=== PATIENT | female | born 1995 | race Caucasian/White ===

== ENCOUNTER 2019-05-12 18:33 | Emergency (ER) | payer MEDICARE, MEDICAID ==
[~2019-05-12] VITALS: Ht 165.1 cm; Wt 77.2 kg
[2019-05-12 19:51] LABS: BASOPHILS # (AUTO) 0.1 X10'3 (0-0.2); BASOPHILS % (AUTO) 0.7 % (0-1); EOSINOPHILS # (AUTO) 0.2 X10'3 (0-0.9); EOSINOPHILS % (AUTO) 2.1 % (0-6); HEMATOCRIT 41.6 % (35.0-45.0); HEMOGLOBIN 13.7 g/dl (12.0-16.0); LYMPHOCYTES # (AUTO) 2.6 X10'3 (1.1-4.8); LYMPHOCYTES % (AUTO) 29.7 % (21-51); MEAN CORPUSCULAR HEMOGLOBIN 30.8 PG (27.0-31.0); MEAN CORPUSCULAR HGB CONC 32.9 g/dL (33.0-36.5); MEAN CORPUSCULAR VOLUME 93.6 FL (78-98); MEAN PLATELET VOLUME 8.3 FL (7.4-10.4); MONOCYTES # (AUTO) 0.7 X10'3 (0-0.9); NEUTROPHILS # (AUTO) 5.2 X10'3 (1.8-7.7); NEUTROPHILS % (AUTO) 59.5 % (42-75); PLATELET COUNT 328 X10'3 (140-440); RED BLOOD COUNT 4.44 X10'6 (4.20-5.60); RED CELL DISTRIBUTION WIDTH 13.5 % (11.5-14.5); WHITE BLOOD COUNT 8.7 X10'3 (4.5-11.0)
[2019-05-12 19:54] LABS: URINE HCG NEGATIVE (NEG)
[2019-05-12 19:57] LABS: URINE AMPHETAMINE SCREEN NEGATIVE (Neg); URINE BARBITUATE SCREEN NEGATIVE (Neg); URINE BENZODIAZEPINES SCREEN POSITIVE (Neg); URINE CANNABINOID SCREEN POSITIVE (Neg); URINE COCAINE SCREEN NEGATIVE (Neg); URINE METHADONE SCREEN NEGATIVE (Neg); URINE OPIATE SCREEN NEGATIVE (Neg); URINE PHENCYCLIDINE SCREEN NEGATIVE (Neg)
[2019-05-12 20:02] LABS: ALANINE AMINOTRANSFERASE 19 U/L (12-78); ALBUMIN 3.7 G/DL (3.4-5.0); ALKALINE PHOSPHATASE 81 IU/L (46-116); ANION GAP 9 (8-16); ASPARTATE AMINO TRANSFERASE 14 U/L (10-37); BILIRUBIN,TOTAL 0.5 MG/DL (0.1-1.0); BLOOD UREA NITROGEN 10 MG/DL (7-18); BUN/CREATININE RATIO 11.6 (6.6-38.0); CALCIUM 8.2 MG/DL (8.5-10.1); CHLORIDE 107 MMOL/L (99-107); CREATININE 0.86 MG/DL (0.40-0.90); GLUCOSE 116 MG/DL (70-104); POTASSIUM 3.3 MMOL/L (3.5-5.1); SODIUM 143 MMOL/L (135-145); TOTAL CARBON DIOXIDE 27.2 MMOL/L (24-32); TOTAL PROTEIN 7.4 G/DL (6.4-8.2); eGFR 81 ML/MIN
[2019-05-12 20:04] LABS: CLARITY,URINE CLOUDY (Clear); COLOR,URINE YELLOW (Yellow); GLUCOSE, URINE NEGATIVE (Neg); KETONES,URINE NEGATIVE (Neg); LEUKOCYTE ESTERASE ,URINE SMALL (Neg); NITRITES, URINE NEGATIVE (Neg); OCCULT BLOOD,URINE NEGATIVE (Neg); PROTEIN,URINE NEGATIVE (Neg)
[2019-05-12 20:09] LABS: UA COLLECTION TYPE CLN CATCH MIDSTREAM
[2019-05-12 20:10] LABS: RBC,URINE 0-2 /HPF (0-2); WBC,URINE 20-30 /HPF (0-4)
[2019-05-12 20:11] LABS: BACTERIA,URINE FEW /HPF (Neg); MUCUS STRANDS MODERATE /LPF (Neg); SQUAMOUS EPITHELIAL CELL,UR MODERATE /LPF (FEW)
[2019-05-12 20:12] LABS: ETHANOL < 0.010 GM/DL (0.0-0.010)
[2019-05-12] MEDS ORDERED: sulfamethoxazole/trimethoprim DS (800/160mg) tablet PO SCH (20:45)
[2019-05-12] MEDS: sulfamethoxazole/trimethoprim DS (800/160mg) tablet PO ONE ×2 (20:45→22:06)
--- NOTE | 2019-05-12 21:10 | NUR ---
Pt packet faxed to [facility]
[2019-05-12] MEDS ORDERED: DIAZ10TA PO (21:40)
[2019-05-12] MEDS ORDERED: BREX1TAB PO (21:40)
[2019-05-12] MEDS ORDERED: DULO60CA45 PO (21:40)
--- NOTE | 2019-05-12 21:42 | NUR ---
DURING ASSESSMENT PT WAS CLEAR THAT SHE DOES NOT HAVE AN ACTIVE PLAN FOR SELF HARM, BUT HAS USED CUTTING IN THE PAST TO PHYSICALLY DISTRACT HERSELF FROM HER MENTAL ANGUISH. SHE HAS NOTICED THE THOUGHTS OF SELF HARM RETURNING, ALONG WITH LOW MOTIVATION, NO PLEASURE FROM NORMAL ACTIVITIES, AND FEELING OUT OF BALANCE. SHE IS SLEEPING ALL DAY, AND AWAKE AND ANXIOUS AT NIGHT. SHE FEELS HER MEDS AREN'T WORKING EFFECTIVELY THEY SHOULD BE AND WANTS TO BE HERE TO GET THAT CORRECTED. SHE ALSO SAID SHE DOES NOT CURRENTLY TAKE ANY THYROID MEDICATIONS AND IS UNAWARE OF HAVING ANY PREVIOUSLY DIAGNOSED THYROID CONDITION. HER TSH WAS 10.15 TODAY.
[2019-05-12] MEDS ORDERED: THO10T PO (21:43)
[2019-05-12] MEDS ORDERED: ZOLP10TA PO (21:43)
--- NOTE | 2019-05-12 22:14 | NUR ---
[facility] AT BEDSIDE TO EVALUATE PT
--- NOTE | 2019-05-12 23:40 | NUR ---
CLARIFIED BACTRIM ORDER W/PHARMACY. PHARMACY ALSO SAID WE DO NOT STOCK REXALTI, IF PT WANTS IT THEY CAN HAVE FAMILY BRING IT IN TO STORE AND DISPENSE FROM PHARMACY WHILE HERE. UPDATED PT.
[2019-05-12] MEDS: chlorproMAZINE 25mg tablet PO SCH (23:41)
[2019-05-12] MEDS: diazepam 5mg tablet PO SCH (23:41)
[2019-05-12] MEDS: zolpidem 5mg tablet PO PRN (23:41)
--- NOTE | 2019-05-13 00:10 | NUR ---
PT RESTING COMFORTABLY, WILL CONTINUE TO MONITOR.
--- NOTE | 2019-05-13 04:55 | NUR ---
PT SLEEPING COMFORTABLY, IN NO DISTRESS AT THIS TIME
--- NOTE | 2019-05-13 06:00 | NUR ---
MOVING PT FROM BED 27 IN DOMINIQUE TO BED 26 FOR MORE PRIVACY
[2019-05-13] MEDS ORDERED: duloxetine 30mg CAPSULE.DR PO SCH (08:00)
[2019-05-13] MEDS: sulfamethoxazole/trimethoprim DS (800/160mg) tablet PO SCH ×2 (08:37→18:51)
[2019-05-13] MEDS: diazepam 5mg tablet PO SCH ×2 (08:37→18:51)
--- NOTE | 2019-05-13 10:30 | NUR ---
BREAKING PRIMARY RN, PT IS LAYING ON HER RIGHT SIDE, EYES CLOSED, APPEARS TO BE ASLEEP. NO S/S OF ANXIETY OBSERVED
--- NOTE | 2019-05-13 12:17 | NUR ---
BREAKING PRIMARY RN, PT IS SUPINE IN BED, EYES CLOSED, NO S/S OF ANXIETY OBSERVED, WILL CONTINUE TO MONITOR
--- NOTE | 2019-05-13 15:52 | NUR ---
PT FEELING VERY ANXIOUS AND STATING "I AM GOING TO LOSE IT". PT ASKIMG FOR A VALUIM. WHEN TOLD SHE COULD ONLY HAVE 1 TWICE A DAY SHE SAID, "THAT'S NOT ANXIETY WORKS" SHE STATES SHE TAKES A VALIUM WHENEVER SHE NEEDS ONE AT HOME.
[2019-05-13] MEDS ORDERED: LORazepam 1 MG tablet PO ONE (16:40)
--- NOTE | 2019-05-13 17:52 | NUR ---
[facility] HERE TO EVALUATE PT. MOM AND PT MAKING A SAFETY PLAN. [facility] WILL SPEAK WITH THEM IN A LITTLE AND DISCHARGE PT HOME IF SAFETY PLAN IS ACCEPTABLE.
[2019-05-13] MEDS ORDERED: BACDS PO (18:06)
[2019-05-13] MEDS: chlorproMAZINE 25mg tablet PO SCH (18:51)
[2019-05-13] MEDS: zolpidem 5mg tablet PO PRN (18:52)
[2019-05-13 19:11] VITALS: BP 118/85
[2019-05-13] MEDS ORDERED: lactobacillus rhamnosus 10,000 MMU CELLS/CAPSULE PO SCH (20:00)
[2019-05-14] MEDS ORDERED: levoTHYROXINE 75mcg tablet PO SCH (07:00)
== END 2019-05-13 19:18 | disposition home or self-care (01) ==
LOC: ER 18:33
DX: F32.9 Major depressive disorder, single episode, unspecified (principal); F41.9 Anxiety disorder, unspecified; N39.0 Urinary tract infection, site not specified; E03.9 Hypothyroidism, unspecified; Z88.8 Allergy status to other drugs, medicaments and biological substances; Z79.899 Other long term (current) drug therapy
CPT/HCPCS: 36415; 80053; 80305; 80320; 81001; 81025; 84443; 85025; 99285; Q0161

== ENCOUNTER 2019-09-03 15:58 | Emergency (ER) | payer MEDICARE, MEDICAID ==
[~2019-09-03] VITALS: Ht 167.6 cm; Wt 77.3 kg
[~2019-09-03 15:58] MED LIST: BREX1TAB PO; DIAZ10TA PO; DULO60CA45 PO; THO10T PO; ZOLP10TA PO
[2019-09-03] MEDS ORDERED: ondansetron 4mg rapidly disintigrating tab PO ONE (17:20)
[2019-09-03] MEDS ORDERED: HYDROcodone/acetaminophen 10/325mg tab PO ONE (17:20)
[2019-09-03] MEDS ORDERED: HYDR-4383 PO (17:23)
[2019-09-03] MEDS ORDERED: BACDS PO (17:23)
[2019-09-03] MEDS ORDERED: ONDA4TAB6 PO (17:23)
[2019-09-03 18:07] VITALS: BP 110/81
== END 2019-09-03 18:08 | disposition home or self-care (01) ==
LOC: ER 15:59
DX: T24.211A Burn of second degree of right thigh, initial encounter (principal); T24.012A Burn of unspecified degree of left thigh, initial encounter; Z88.8 Allergy status to other drugs, medicaments and biological substances; Z88.6 Allergy status to analgesic agent; Z79.899 Other long term (current) drug therapy; X10.1XXA Contact with hot food, initial encounter; Y93.89 Activity, other specified; Y92.89 Other specified places as the place of occurrence of the external cause; Y99.9 Unspecified external cause status
CPT/HCPCS: 99284

== ENCOUNTER 2019-09-11 20:04 | Emergency (ER) | payer MEDICARE, MEDICAID ==
[~2019-09-11] VITALS: Ht 167.6 cm; Wt 77.3 kg
[~2019-09-11 20:04] MED LIST changes: +BACDS PO; +HYDR-4383 PO; +ONDA4TAB6 PO
[2019-09-11 20:14] VITALS: BP 117/73
[2019-09-11] MEDS ORDERED: HYDROcodone/acetaminophen 5mg/325mg tablet PO ONE ×2 (21:30→23:15)
[2019-09-11] MEDS ORDERED: ondansetron 4mg rapidly disintigrating tab PO ONE (21:30)
[2019-09-11] MEDS ORDERED: ONDA4TAB6 PO (21:31)
[2019-09-11] MEDS ORDERED: HYDR-3965 PO (21:31)
[2019-09-11] MEDS ORDERED: SULF1TAB49 PO (21:31)
[2019-09-11] MEDS ORDERED: bacitracin 15gm ointment TP ONE (21:35)
== END 2019-09-11 23:29 | disposition home or self-care (01) ==
LOC: ER 20:05
DX: T24.211D Burn of second degree of right thigh, subsequent encounter (principal); T24.012D Burn of unspecified degree of left thigh, subsequent encounter; Z88.6 Allergy status to analgesic agent; Z88.8 Allergy status to other drugs, medicaments and biological substances; Z79.899 Other long term (current) drug therapy; X10.1XXD Contact with hot food, subsequent encounter
CPT/HCPCS: 16020; 99284

== ENCOUNTER 2019-09-14 10:00 | Outpatient (CLI) | payer MEDICARE, MEDICAID ==
[~2019-09-14 10:00] MED LIST changes: +HYDR-3965 PO; +SULF1TAB49 PO
[2019-09-14] MEDS ORDERED: LIDOcaine 2% 5ml jelly ONE (11:20)
[2019-09-14] MEDS ORDERED: silver sulfadiazine cream 50gm TP ONE (11:51)
== END 2019-09-14 12:10 | disposition home or self-care (01) ==
LOC: WOUND CARE 10:00 → EDSTATUS 11:00 → WOUND CARE 12:10
PROVIDERS: ATTEND Surgery
DX: T24.211A Burn of second degree of right thigh, initial encounter (principal); E11.69 Type 2 diabetes mellitus with other specified complication; M86.8X7 Other osteomyelitis, ankle and foot; E11.42 Type 2 diabetes mellitus with diabetic polyneuropathy; E11.65 Type 2 diabetes mellitus with hyperglycemia; E11.52 Type 2 diabetes mellitus with diabetic peripheral angiopathy with gangrene; E07.9 Disorder of thyroid, unspecified; J44.9 Chronic obstructive pulmonary disease, unspecified; G89.4 Chronic pain syndrome; I11.0 Hypertensive heart disease with heart failure; I50.9 Heart failure, unspecified; G47.33 Obstructive sleep apnea (adult) (pediatric); I25.2 Old myocardial infarction; F19.10 Other psychoactive substance abuse, uncomplicated; F17.200 Nicotine dependence, unspecified, uncomplicated; F32.9 Major depressive disorder, single episode, unspecified; Z98.890 Other specified postprocedural states; Z86.718 Personal history of other venous thrombosis and embolism; Z95.0 Presence of cardiac pacemaker; Z86.73 Personal history of transient ischemic attack (TIA), and cerebral infarction without residual deficits; Z89.431 Acquired absence of right foot; X08.8XXA Exposure to other specified smoke, fire and flames, initial encounter; Y93.89 Activity, other specified; Y92.89 Other specified places as the place of occurrence of the external cause; Y99.8 Other external cause status
CPT/HCPCS: A6223; G0463; A4663; A6212

== ENCOUNTER 2021-08-02 17:45 | Emergency (ER) | payer MEDICAID, MEDICARE ==
[~2021-08-02] VITALS: Ht 167.6 cm; Wt 81.8 kg
[~2021-08-02 17:45] MED LIST changes: -BACDS PO; -DULO60CA45 PO; +DULO60CA60 PO; -HYDR-3965 PO; -SULF1TAB49 PO
[2021-08-02 18:09] VITALS: BP 131/93
[2021-08-02] MEDS ORDERED: ALPR-624 PO (19:00)
[2021-08-02] MEDS ORDERED: ZOLP5TAB2 PO (19:00)
== END 2021-08-02 19:12 | disposition home or self-care (01) ==
LOC: ER 17:45
DX: Z02.89 Encounter for other administrative examinations (principal); F41.9 Anxiety disorder, unspecified; F32.9 Major depressive disorder, single episode, unspecified; Z88.8 Allergy status to other drugs, medicaments and biological substances; Z79.899 Other long term (current) drug therapy
CPT/HCPCS: 99283